=== PATIENT | female | born 1950 | race Caucasian/White ===

== ENCOUNTER 2017-10-14 06:56 | Emergency (ER) | payer OTHER ==
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
[2017-10-14 07:10] VITALS: TEMP 97.5
[2017-10-14] MEDS ORDERED: IBUPROFEN 200 MG TAB PO ONE (07:12)
[2017-10-14 09:47] VITALS: BP 114/77; PULSE 77; RESP 16; O2SAT 98
== END 2017-10-14 09:25 | disposition home or self-care (01) ==
DX: S49.92XA Unspecified injury of left shoulder and upper arm, initial encounter (principal); V67.5XXA Driver of heavy transport vehicle injured in collision with fixed or stationary object in traffic accident, initial encounter; Y92.410 Unspecified street and highway as the place of occurrence of the external cause; Y99.8 Other external cause status; Y93.89 Activity, other specified